=== PATIENT | female | born 2000 | race Caucasian/White ===

== ENCOUNTER 2023-06-17 22:12 | Emergency (ER) | payer OTHER ==
[~2023-06-17] VITALS: Ht 180.3 cm; Wt 70.5 kg
[2023-06-17 22:24] VITALS: TEMP 97.8
[2023-06-17 23:39] VITALS: BP 118/80; PULSE 70
== END 2023-06-17 23:46 | disposition home or self-care (01) ==
LOC: COL.ER 22:12
DX: S81.812A Laceration without foreign body, left lower leg, initial encounter (principal); Z23 Encounter for immunization; W26.9XXA Contact with unspecified sharp object(s), initial encounter; Y93.39 Activity, other involving climbing, rappelling and jumping off